=== PATIENT | female | born 1990 | race Caucasian/White ===

== ENCOUNTER 2020-05-09 14:22 | Emergency (ER) | payer BC, SELFPAY ==
--- NOTE | ~2020-05-09 | XR_ITS ---
EXAMINATION: XR abdomen/kub 1V EXAM DATE: 05/09/2020 15:33 INDICATION: CVA tenderness on the right side. TECHNIQUE: Frontal projection(s) of the abdomen for interpretation. There is no prior study for redd raygoza. FINDINGS: There is expected amount of colonic stool and gas. No small bowel dilation, nonobstructiv e bowel gas pattern. There are no suspicious calcifications identified. There is no organomegaly suspected. The bones are unremarkable. Lung bases are unremarkable. IMPRESSION: Unremarkable abdomen x-ray exam. Reviewed, dictated and finalized at location A.
--- NOTE | 2020-05-09 14:43 | ED.GENADULT ---
HPI - General Adult General Chief complaint: Urogenital-Female Stated complaint: Kidneys Time Seen by Provider: 05/09/20 15:12 Source: patient Mode of arrival: ambulatory Limitations: no limitations History of Present Illness HPI narrative: 29-year-old female patient presents to the [facility] with complaints of urinary symptoms for the past month with right-sided flank pain that started about a week and 2:30 weeks ago. Patient states she started noticing some burning with urination back in December and has been off and on but this time is been consistent for the past month. Patient states she is also had some right-sided flank pain. Patient states she has been diagnosed with kidney infections before but denies any pyelonephritis. Patient denies any fevers. Patient unsure if she could be today. Patient denies any nausea, vomiting or diarrhea. Related Data Allergies Allergy/AdvReac Type Severity Reaction Status Date / Time amoxicillin Allergy Rash Verified 05/09/20 15:07 Penicillins Allergy Rash Verified 05/09/20 15:05 Review of Systems Review of Systems: Narrative: CONSTITUTIONAL: Denies fever, chills, or sweats. EYES: Denies visual changes, redness, or discharge. ENT: Denies rhinorrhea, congestion, sore throat, or otalgia. CARDIOVASCULAR: Denies chest pain, palpitations, or edema. RESPIRATORY: Denies cough or dyspnea. GASTROINTESTINAL: Denies abdominal pain, nausea, vomiting, or diarrhea. GENITOURINARY: Denies dysuria or hematuria. Positive pain with urination x1 month. Positive right-sided flank pain x1-1/2 to 2 weeks SKIN: Denies rash or itching. MUSCULOSKELETAL: Denies back pain, joint pain, or myalgia. NEUROLOGIC: Denies headache, numbness, or weakness. PSYCHIATRIC: Denies anxiety or depression. PMFSH Comments At the time of my signature I agree with nursing past medical history, surgical, social, and family history. There is no relevant family history pertinent to the presenting complaint. Exam Narrative: Exam Narrative: GENERAL: Well-appearing, well-nourished, and in no acute distress. HEAD: Normocephalic, atraumatic. EYES: PERRLA and EOMI. ENT: Nares clear, no rhinorrhea or epistaxis. Mucous membranes moist. NECK: Supple. No lymphadenopathy CHEST: Clear to auscultation. No respiratory distress. HEART: Regular rate and rhythm. No murmur heard. Normal peripheral pulses. ABDOMEN: Soft, nontender, nondistended, normal active bowel sounds. Right-sided CVA tenderness on percussion EXTREMITIES: Normal range of motion. No edema. SKIN: Warm, dry, no rash. NEURO: No focal deficits. Alert and oriented x3. Course Reevaluation(s) Reevaluation #1: Reevaluated patient after x-ray had resulted. Discussed with her that the x-ray is negative for any obvious kidney stones. Discussed with patient we will go ahead and start her on antibiotics today due to her symptoms to see if this improves her symptoms. Discussed with patient that if she continues to have worsening symptoms or they do not resolve with antibiotics that I would encourage her to follow-up with her primary doctor. Patient verbalized understanding denies any other questions or concerns at this time. Date: 05/09/20 Time: 15:46 Vital Signs Vital signs: Vital Signs Temperature 36.7 C 05/09/20 14:50 Pulse Rate 96 05/09/20 14:50 Respiratory Rate 16 05/09/20 14:50 Blood Pressure 133/89 05/09/20 14:50 Pulse Oximetry 100 05/09/20 14:50 Temperature 36.7 C 05/09/20 14:50 Pulse Rate 96 05/09/20 14:50 Respiratory Rate 16 05/09/20 14:50 Blood Pressure 133/89 05/09/20 14:50 Pulse Oximetry 100 05/09/20 14:50 Vital signs reviewed. The patient has been informed that they may have pre-hypertension or Hypertension based on a BP reading in the department. I recommend that the patient call the primary care provider listed on their discharge instructions or a physician of their choice this week to arrange follow up for further evaluation
[2020-05-09 14:50] VITALS: BP 133/89; PULSE 96; RESP 16; TEMP 36.7; O2SAT 100
== END 2020-05-09 15:50 | disposition home or self-care (01) ==
PROVIDERS: Emergency Provider Nurse Practitioner Family
DX: N30.90 Cystitis, unspecified without hematuria (principal)
CPT/HCPCS: 74018; 81003; 81025; 87077; 87086; 87088; 87186; 99203; G0463